=== PATIENT | male | born 1965 | race Caucasian/White ===

== ENCOUNTER → 2018-09-09 10:53 | Outpatient (CLI) | payer BC, SELFPAY | PROVIDERS: Family Provider Family Medicine; PCP Student in an Organized Health Care Education/Training Program; Visit Provider Physician Assistant | DX: L03.011 Cellulitis of right finger (principal); R52 Pain, unspecified | CPT/HCPCS: 87070; 87205 ==

== ENCOUNTER → 2019-04-18 08:18 | Outpatient (CLI) | payer BC, SELFPAY ==
--- NOTE | 2019-04-18 09:24 | P.PCN_ITS ---
Cardiac Stress Test Report Referral & Results Date Patient Seen: 04/18/19 Requesting provider: Johnathon Reyes Indication: Abnormal ECG Rest ECG: First-degree AV block and T-wave inversions laterally as well as in leads III aVf Procedure Note: Today following both written and verbal informed consent the patient was exercised according to a standard David protocol patient went for a total of 11 minutes 28 seconds achieving a maximum heart rate of 192 maximum systolic blood pressure of 152. This is approximately 12.8 METS. Exercise was terminated at this point because of targets were met. With exercise patient developed approximately 2.[address] segment depression in leads V4 through V6 with perhaps a hint of depression in the infe rior leads as well. In recovery the slowly began to improve but had not yet reached baseline at 5+ minutes into recovery. Patient was asymptomatic throughout however. Normal heart rate and blood pressure response Functional aerobic impairment rates-20% on the active scale or 120% normal on that same scale Occasional to rare PVC identified Patient was also given Cardiolite through a previously started Hep-Lock IV by the diagnostic imaging staff approximately 1 minute prior to the cessation of exercise. Impression: Ischemic changes in lateral leads as above. This is also in the area were baseline ECG abnormalities are present. Excellent exercise capacity Please see perfusion imaging report as well regarding potential ischemia as patient was also given Cardiolite Please note: Actual ECG tracings can be found in the PACS system.
--- NOTE | 2019-04-19 17:20 | DI.NM.S_ITS ---
DATE OF SERVICE: 04/18/2019 PROCEDURE: Exercise perfusion study. INDICATION: Abnormal EKG, FAA clearance. RADIOPHARMACEUTICAL: 25.0 mCi technetium-99m Myoview IV was injected at stress, and 25.2 mCi technetium-99m Myoview IV was injected at rest. CARDIAC STRESS: Patient underwent exercise perfusion study under the supervision of an attending staff. He walked on David protocol for 12 minutes 5 seconds and achieved 117% of target heart rate. At second stage, his blood pressure was 142/80. Resting blood pressure information is missing. The peak blood pressure was 150/90. Baseline rhythm was sinus and T-wave inversion in lead V3 to V6 as well as lead L2 and AVF with some flattening of the segment. During exercise and recovery, patient had 1- to 2-mm horizontal/downsloping ST depression in lead V3 to V6 with inverted T-wave. Nonspecific ST segments seen in inferior leads. Baseline artifacts were seen as well. No significant ventricular tachycardia seen. No symptoms were reported. Functional aerobic impairment -20%. Patient achieved 12.8 METS of work load. RAW DATA: There is increased subdiaphragmatic activity. GATED STUDY: Resting LV ejection fraction 59% and stress LV ejection fraction 61%. Resting end-diastolic volume 190 mL. No significant wall motion abnormalities. No transient ischemic dilatation. TID ratio was 0.82, which is within normal limits. Lung/heart ratio was 0.3, which is within normal limits. MYOCARDIAL PERFUSION SCAN: Stress supine, resting supine, and stress prone images were compared to each other. Stress supine images revealed small-to- moderate-sized mildly decreased perfusion of inferolateral wall and inferior apex. During resting supine, in addition to inferolateral and apical defect, there was anterior wall and distal anteroseptal defect as well, of moderate- sized and [id number] in intensity. During prone, most of the perfusion defects got normalized; however, patient remained to have mildly decreased perfusion of inferior apex and distal inferolateral wall. No significant reversible ischemia on perfusion scan. CONCLUSION: There is a fixed small-sized inferoapical and distal inferolateral defect without any significant reversible ischemia. Majority of the perfusion defect as mentioned above and seen during stress supine and resting supine images got normalized in the prone images; however, patient had persistent inferoapical and distal inferolateral defect. Patient has normal wall motion in those segments, which goes against the diagnosis of previous transmural myocardial infarction. However, one cannot rule out possibility of small nontransmural myocardial infarction in those segments. Patient has baseline T- wave inversion in lead V3 to V6 and lead L2 and AVF. During peak exercise and recovery, patient had 1- to 2-mm horizontal downsloping ST depression in lead V4 to V6, which persisted more than 5 minutes in recovery. Overall, excellent exercise tolerance. Total exercise time was 12 minutes 6 seconds. Patient achieved 12.8 METS of workload. Functional aerobic impairment -20%. Hence, I will call this study an abnormal myocardial perfusion study, but overall low-risk myocardial perfusion study. Correlate clinically. Andrea Nunez - WEBBING [employer]ER/sarah/kv doc#: [id number]/job#: [id number] dd: 04/19/2019 16:49:00 dt: 04/19/2019 17:06:00 DICTATING MD/COPIES TO: Flavio Ceballos MD ; Unknown COPIES MNE: MEAGAN GARCIA
== END ==
PROVIDERS: PCP Student in an Organized Health Care Education/Training Program; Visit Provider Anesthesiology
DX: R94.31 Abnormal electrocardiogram [ECG] [EKG] (principal)
CPT/HCPCS: 78452; 93016; 93017; 93018; A9502

== ENCOUNTER → 2019-04-25 11:42 | Outpatient (CLI) | payer BC, SELFPAY ==
[2019-04-25 13:19] LABS: BUN Creatinine Ratio 15.8 (6-22); Blood Urea Nitrogen 19 mg/dL (9-20); Carbon Dioxide 27 mmol/L (22-32); Chloride 103 mmol/L (98-107); Estimated Glomerular Filt Rate > 60.0 mL/min (>60); Glucose 87 mg/dL (70-100); HEMOLYSIS < 15 (0-50); Potassium 5.1 mmol/L (3.4-5.1); Sodium 139 mmol/L (137-145); Uric Acid 8.4 mg/dL (3.5-8.5)
[2019-04-25 13:46] LABS: Prostate Specific Antigen Scrn 0.895 ng/mL (0.1-4.0)
== END ==
PROVIDERS: PCP Student in an Organized Health Care Education/Training Program; Visit Provider Student in an Organized Health Care Education/Training Program
DX: Z12.5 Encounter for screening for malignant neoplasm of prostate (principal); I10 Essential (primary) hypertension; Z87.39 Personal history of other diseases of the musculoskeletal system and connective tissue
CPT/HCPCS: 36415; 80048; 84550; G0103

== ENCOUNTER → 2019-07-31 10:41 | Outpatient (CLI) | payer BC, SELFPAY ==
--- NOTE | 2019-07-31 10:42 | DI.US.S_ITS ---
PROCEDURE: US ABDOMEN LIMITED INDICATIONS: EVALUATE CYSTIC MASS IN LEFT FLANK.ASPIRATION NOT REQUIRED TECHNIQUE: Real-time focused scanning was performed of the abdomen, with image documentation. COMPARISON: None. FINDINGS: Inferior and lateral to the tip of the scapula, there is heterogeneous echogenicity, without definite internal vascularity measuring approximately 5.2 x 1.7 x 5.7 cm. There is hyperechoic possible fat echogenicity in addition to grossly isoechoic appearance, and margins are indistinct. No drainable fluid collection or cystic lesion is seen. IMPRESSION: Hyperechoic-isoechoic mass involving the periscapular region as detailed above. Sonographic findings are technically nonspecific. Differential includes lipoma, liposarcoma versus rare entities such as elastofibroma although other benign and malignant entities in the differential. Recommend further evaluation with contrast-enhanced chest CT. Dictated by: Asa Dobbins M.D. on 07/31/2019 at 16:38 Approved by: Asa Dobbins M.D. on 07/31/2019 at 16:43
== END ==
PROVIDERS: PCP Student in an Organized Health Care Education/Training Program; Referring Provider Student in an Organized Health Care Education/Training Program; Visit Provider Student in an Organized Health Care Education/Training Program
DX: R19.09 Other intra-abdominal and pelvic swelling, mass and lump (principal); M79.89 Other specified soft tissue disorders
CPT/HCPCS: 76705

== ENCOUNTER → 2019-08-04 18:29 | Outpatient (CLI) | payer BC, SELFPAY ==
--- NOTE | 2019-08-04 18:33 | DI.RAD.S_ITS ---
PROCEDURE: XR KNEE LT 3V INDICATIONS: L tib-fib/patellar pain post impact, swelling to bursa TECHNIQUE: 3 views of the knee were acquired. COMPARISON: None. FINDINGS: Bones: No fractures or dislocations. No suspicious bony lesions. Minimal degenerative change. Question of intra-articular bodies. Soft tissues: Minimal joint effusion. No suspicious soft tissue calcifications. IMPRESSION: Minimal degenerative change. Question intra-articular bodies. No evidence acute bony abnormality of the left knee. If clinical suspicion and/or symptoms persist, further assessment with repeat plain films, or advanced imaging (e.g., CT, MRI, or bone scan) may be helpful for further assessment. Dictated by: Jaya Nazario M.D. on 08/04/2019 at 19:00 Approved by: Jaya Nazario M.D. on 08/04/2019 at 19:01
== END ==
PROVIDERS: PCP Student in an Organized Health Care Education/Training Program; Referring Provider Nurse Practitioner; Visit Provider Nurse Practitioner
DX: M25.562 Pain in left knee (principal)
CPT/HCPCS: 73562

== ENCOUNTER → 2019-10-03 11:15 | Outpatient (CLI) | payer BC, SELFPAY ==
--- NOTE | 2019-10-03 | DI.MRI.S_ITS ---
PROCEDURE: MR KNEE LT WO CON INDICATIONS: Unspecified internal derangement of left knee TECHNIQUE: Noncontrast sagittal PD fast spin echo and T2 fast spin echo with fat saturation, sagittal 3-D FLASH with fat saturation; coronal T1 spin echo and PD fast spin echo with fat saturation, and axial PD fast spin echo with fat saturation through the knee. COMPARISON: [facility], CR, XR KNEE LT 3V, 08/04/2019, 18:31. FINDINGS: Image quality: Diagnostic. Bones and joint: There is no acute fracture or dislocation. Need marrow edema is evident involving the posterior aspect of the lateral tibial plateau, and the periphery of the medial femoral condyle. There may also be vague marrow edema involving the head of the fibula. No suspicious osseous lesions are evident. There is a moderate-sized knee joint effusion. A trace amount of fluid extends into a very small Blanton's cyst. No definite loose intra-articular joint bodies are appreciated. Heterogeneity of the hyaline articular cartilage is identified within the patellofemoral compartment without a definite full-thickness cartilaginous defect evident. No defects of the cartilage are evident within the medial or lateral tibiofemoral compartments. Cruciate ligaments: The anterior and posterior cruciate ligaments are intact. However, there is diffuse thickening and increased signal involving both of these ligaments that is more prominent involving the anterior cruciate ligament. Menisci: There is low-grade partial-thickness tearing involving the posterior root of the medial meniscus. Obliquely oriented signal is identified at the junction of the body and posterior horn that extends towards the inferior articular surface without definite involvement of the articular surface. The lateral meniscus is intact and otherwise within normal limits. Medial structures: The medial collateral ligament is intact. However, there is peritendinous edema. Fluid is contained within its corresponding bursa. The semimembranosus tendon insertion is intact. The imaged portions of the pes anserinus tendons are unremarkable. No significant fluid is contained within the pes anserinus bursa. There is a medial patellar plica. Lateral structures: The popliteal tendon is mildly thickened and edematous. The lateral collateral ligament proper (fibular collateral ligament) and the proximal tibiofibular ligaments are intact. The distal aspect of the biceps femoris tendon and the iliotibial band are intact. Anterior structures: The quadriceps and patellar tendons are intact. However, there is increased signal involving the proximal aspect of the patellar tendon with corresponding thickening. There is moderate edema within the prepatellar soft tissues with corresponding fluid contained within the prepatellar bursa. There mild edema evident within the superolateral margin of the infrapatellar fat pad. IMPRESSION: 1. Bone contusions involving the posterior lateral tibial plateau, medial femoral condyle, and head of the fibula. No fractures. 2. Low-grade partial-thickness tear involving the posterior root of the medial meniscus with additional peripheral tearing. 3. Anterior and posterior cruciate ligament sprains. No full thickness tears. 4. Medial collateral ligament sprain. Rectum fluid is contained within its associated bursa. 5. Mild proximal popliteal tendinopathy. 6. Mild proximal patellar tendinopathy. Edema within the prepatellar soft tissues may represent bursitis. 7. Possible early patellofemoral chondromalacia. No full-thickness defects. 8. Knee joint effusion. 9. Medial patellar plica. Dictated by: Jan Ewing M.D. on 10/03/2019 at 11:15 Approved by: Jan Ewing M.D. on 10/03/2019 at 11:22
== END ==
PROVIDERS: PCP Student in an Organized Health Care Education/Training Program; Referring Provider Orthopaedic Surgery Adult Reconstructive Orthopaedic Surgery; Visit Provider Orthopaedic Surgery Adult Reconstructive Orthopaedic Surgery
DX: S80.02XA Contusion of left knee, initial encounter (principal); S83.222A Peripheral tear of medial meniscus, current injury, left knee, initial encounter; S83.512A Sprain of anterior cruciate ligament of left knee, initial encounter; S83.522A Sprain of posterior cruciate ligament of left knee, initial encounter; M25.462 Effusion, left knee; M67.52 Plica syndrome, left knee
CPT/HCPCS: 73721

== ENCOUNTER → 2019-10-27 18:50 | Outpatient (CLI) | payer BC, SELFPAY ==
--- NOTE | 2019-10-27 18:51 | DI.MRI.S_ITS ---
PROCEDURE: MR CHEST WO/W CON INDICATIONS: left mid back lower posterior chest mass: lipoma vs sarcoma TECHNIQUE: Noncontrast coronal T1 spin echo and STIR, sagittal T1 spin echo with fat saturation and STIR, axial T1 spin echo and T2 fast spin echo with fat saturation. After the administration of contrast, axial/sagittal/coronal T1 spin echo with fat saturation through the left chest wall. COMPARISON: None. FINDINGS: Image quality: Excellent. Bones: The visualized bone marrow demonstrates normal signal on all sequences. No abnormal intraosseous enhancement. No bony erosions. Soft tissues: There is a well-circumscribed intramuscular mass within the left latissimus dorsi measuring 9.8 x 4.4 x 4.9 cm. This demonstrates primarily internal fat signal with a few internal thin septations and crossing vessels. Following contrast administration, there is mild enhancement of the septations. No adjacent soft tissue edema or enhancement. The scanned muscles otherwise demonstrate normal overall bulk and internal signal. Subcutaneous tissues appear within normal limits. IMPRESSION: 1. Well-circumscribed intramuscular mass within the left latissimus dorsi demonstrating internal thin septations and crossing vessels. The findings likely represent a lipoma or atypical lipomatous tumor. However, a low grade liposarcoma cannot be excluded by imaging. 2. No evidence of adjacent extramuscular extension or bony invasion. Dictated by: Agustin Morocho M.D. on 10/30/2019 at 10:52 Approved by: Agustin Morocho M.D. on 10/30/2019 at 11:02
== END ==
PROVIDERS: PCP Student in an Organized Health Care Education/Training Program; Referring Provider Specialist; Visit Provider Specialist
DX: R22.2 Localized swelling, mass and lump, trunk (principal)
CPT/HCPCS: 71552; A9579

== ENCOUNTER → 2019-11-02 06:59 | Outpatient (CLI) | payer BC, SELFPAY ==
[2019-11-02 08:54] LABS: Cholesterol 192 mg/dL (140-199); HDL Cholesterol 65 mg/dL (40-60); LDL Cholesterol Calculated 114 mg/dL (<100); Triglycerides 64 mg/dL (35-150)
== END ==
PROVIDERS: PCP Student in an Organized Health Care Education/Training Program; Referring Provider Student in an Organized Health Care Education/Training Program; Visit Provider Student in an Organized Health Care Education/Training Program
DX: E78.00 Pure hypercholesterolemia, unspecified (principal)
CPT/HCPCS: 36415; 80061

== ENCOUNTER → 2020-03-08 14:28 | Outpatient (CLI) | payer BC, SELFPAY ==
[2020-03-09 21:36] LABS: COVID19 Sendout Not Detected (Not Detect)
== END ==
PROVIDERS: PCP Student in an Organized Health Care Education/Training Program; Visit Provider Physician Assistant
DX: Z01.812 Encounter for preprocedural laboratory examination (principal)
CPT/HCPCS: 87635

== ENCOUNTER 2020-03-11 06:34 | Day surgery (SDC) | payer BC, SELFPAY ==
[2020-03-06 12:31] VITALS: BMI 27.3
[2020-03-11] VITALS (7 sets, daily range): BP systolic 122–142; BP diastolic 70–91; PULSE 60–86; RESP 16–21; TEMP 36.1–36.9; O2SAT 98–100; BMI 27.3
--- NOTE | 2020-03-11 | PATH_ITS ---
[facility] Accession Number: [id number] . 01 Material submitted: . back - INTRAMUSCULAR LIPOMA BACK . 01 Clinical history: . SDC . 01 Diagnosis: Back, Excision: Mature adipose tissue with minimal skeletal muscle, consistent with intramuscular lipoma. MRV 03/13/2020 0925 Local . 01 Electronically signed: . Luke Stafford MD, Dermatopathologist NPI- [id number] . 01 Gross description: . Received in formalin, labeled intramuscular lipoma back, and consists of three nevarez-yellow fragments of adipose tissue measuring 9.5 x 9.5 x 3.2 cm in aggregate. The tissue fragments are inked blue and sectioned to reveal nevarez-yellow lobulated and glistening cut surfaces. Child Care Director sections are submitted in cassettes A1-A9. ([id number]) /MRV 03/12/2020 1040 Local . 01 Pathologist provided ICD-10: D17.9 . 01 CPT . 518113 Performed at: [address] [facility] [address], [place], [place] [id number] MD Agustin Colon MD Phone: [phone]
[2020-03-11] MEDS: LACTATED RINGERS 1,000 ML 42 ML IV ×2 (07:25→08:53)
--- NOTE | 2020-03-11 07:59 | PM.HP.1 ---
History of Present Illness History of Present Illness Date Patient Seen: 03/11/20 Time Patient Seen: 08:00 Chief complaint: [facility] [place]arrative: It is gentleman here for removal of a large left back mass. He thinks it may have grown since I last saw him in September. Patient History Medical History History of cardiac murmur (Acute) Wound of left lower extremity (Inactive 01/20/15) Surgical History History of stress test (Resolved ~03/2019) Family & Social History Family History Father Cancer Mother History of heart disease Brother Cancer Social History: household members spouse Tobacco & Substance use: Smoking Status Never smoker alcohol intake current alcohol intake frequency 0-2 drinks per day Substance Use Type does not use Meds Home Medications and Allergies Home Medications Medication Instructions Recorded Confirmed Type lisinopril 20 mg tablet 20 mg PO DAILY #90 tab 04/25/19 03/11/20 Rx Allergies Allergy/AdvReac Type Severity Reaction Status Date / Time No Known Drug Allergies Allergy Verified 03/11/20 07:01 Review of Systems Review of Systems Narrative: Heart murmur ROS: Yes All systems reviewed with the patient and are negative except as otherwise documented Exam Vital Signs (past 8 hours): - 03/11/20 07:07 Temperature 97.9 F Pulse Rate 62 Respiratory Rate 16 Blood Pressure 122/87 Pulse Oximetry 99 Oxygen Delivery Method Room Air Narrative Exam Narrative: Pleasant cooperative patient no apparent distress. Lungs are clear to auscultation. No rales or rhonchi. Heart regular rate and rhythm no gallop. Loud to to 3/6 systolic murmur heard best at the right sternal border with radiation into the neck. Abdomen is soft nontender without mass. No obvious hernias. Patient is alert and oriented x3. Left flank mass measuring about 11 x 11 cm. Clinically In the subcu fat. Assessment & Plan Assessment & Plan narrative: Patient with a large mass left lower back. Causes occasional discomfort to the location. I have discussed the procedure of removal with him. Risks of bleeding infection recurrence discussed he appears to understand wishes to proceed
--- NOTE | 2020-03-11 08:02 | PM.PREOP ---
Pre-operative Note COVID-19 COVID-19 status: Negative Result date/Date tested (Pos, Neg/Pending): 03/08/20 Interval Note History & Physical reviewed/Exam performed by Physician: Yes Changes to H&P: No
[2020-03-11] MEDS: CEFAZOLIN 2 GM/100 ML FROZ.PIGGY IV (08:03)
--- NOTE | 2020-03-11 08:30 | SUR.OPER ---
Lateral on padded OR bed, head on pillow, gel axillary roll in place, bottom leg bent with gel pad under knee to foot, upper leg straight and supported with pillows. Upper arm supported by pillows and secured over bottom arm to padded arm board. Safety belt at hip, tape over blanket lower legs.
[2020-03-11] MEDS: BUPIVACAINE 0.5% (PF) VIAL 30 ML INJ (08:39)
--- NOTE | 2020-03-11 09:32 | P.OP_ITS ---
Operative Date/Time/Diagnoses Date of procedure: 03/11/20 Time of procedure: 09:32 Pre-op diagnosis: Mass left flank probable lipoma measures 11 x 11 cm. Post-op diagnosis: same (Subcutaneous and a separate intramuscular lipoma.) Procedure & Clinicians Procedure: Excision Same procedure as scheduled: Yes Indications: Symptomatic mass Surgeon: Aravind Bear Click Yes if Unassisted: Yes Anesthesia Type: General Operative Notes Findings: Large intramuscular fatty mass consistent with a lipoma. Additional subcutaneous fatty mass also consistent with lipoma. It was removed in 2 pieces. Closure Type: primary Specimen(s): other (Masses) Prosthetic devices, grafts, tissues, transplants, or devices: None Estimated Blood Loss (mL): 15 Blood products transfused: none Procedure in detail: The patient was placed in right lateral decubitus position after undergoing general LMA anesthesia. Bony prominence was were padded an axillary roll was placed. He was prepped and draped in the usual fashion. Lo kiet anesthetic was infiltrated around the lesion and where the incision was to be made. Incision was made and carried down through the subcu fat to what appeared to be of the fatty mass. I began dissecting around it but realize that there also seemed to be a separate mass deeper in the muscle. I divided through the subcutaneous fatty mass and muscle fascia and splitting the muscle fibers identified a large fatty mass within the muscle itself. This was dissected from the surrounding muscle using blunt and cautery dissection. It was ultimately released and removed. Hemostasis was achieved. I dissected out the subcutaneous masses off of the muscle fascia and removed them. Cautery was used to accomplish this. The muscle fascia was reapproximated with [id number] 3 0 Vicryl the subcu was closed with interrupted [id number] 3-0 Vicryl. The skin was closed running 4 0 Vicryl subcuticular stitch and Steri-Strips. Dressing was applied and the patient was awakened extubated and taken to recovery area in good condition Complications: none Post-operative Condition: stable Disposition: PACU
--- NOTE | 2020-03-11 10:21 | SUR.PHASEII ---
Pt voiced a readiness to go, did not want to come in for d/c instruction, called, informed of d/c information would be in brightly colored envelop.Pt left in stable condition.
== END 2020-03-11 10:18 | disposition home or self-care (01) ==
PROVIDERS: PCP Student in an Organized Health Care Education/Training Program; Referring Provider Specialist; Visit Provider Specialist
PROC: (CPT 21933; principal; 2020-03-11 07:45)
DX: D17.1 Benign lipomatous neoplasm of skin and subcutaneous tissue of trunk (principal); I10 Essential (primary) hypertension
CPT/HCPCS: 21933; J0690; J1100; J1885; J2250; J2405; J2704; J3010

== ENCOUNTER → 2021-02-10 09:52 | Outpatient (CLI) | payer BC, SELFPAY ==
[2021-02-10 12:51] LABS: BUN Creatinine Ratio 19.5 (6-22); Blood Urea Nitrogen 22 mg/dL (9-20); Calcium 9.9 mg/dL (8.4-10.2); Carbon Dioxide 27 mmol/L (22-32); Chloride 105 mmol/L (98-107); Estimated Glomerular Filt Rate > 60.0 mL/min (>60); Glucose 86 mg/dL (70-100); HEMOLYSIS < 15 (0-50); Potassium 4.8 mmol/L (3.4-5.1); Sodium 139 mmol/L (137-145)
[2021-02-10 13:09] LABS: Prostate Specific Antigen Scrn 0.955 ng/mL (0.1-4.0)
== END ==
PROVIDERS: PCP Student in an Organized Health Care Education/Training Program; Referring Provider Student in an Organized Health Care Education/Training Program; Visit Provider Student in an Organized Health Care Education/Training Program
DX: I10 Essential (primary) hypertension (principal); Z12.5 Encounter for screening for malignant neoplasm of prostate
CPT/HCPCS: 36415; 80048; G0103

== ENCOUNTER → 2021-02-13 11:40 | Outpatient (CLI) | payer BC, SELFPAY ==
[2021-02-14 21:14] LABS: Fecal Immunochemical Test Negative (Negative)
== END ==
PROVIDERS: PCP Student in an Organized Health Care Education/Training Program; Referring Provider Student in an Organized Health Care Education/Training Program; Visit Provider Student in an Organized Health Care Education/Training Program
DX: Z12.11 Encounter for screening for malignant neoplasm of colon (principal)
CPT/HCPCS: 82274

== ENCOUNTER → 2021-10-03 09:39 | Outpatient (CLI) | payer BC, SELFPAY | PROVIDERS: PCP Student in an Organized Health Care Education/Training Program; Visit Provider Physician Assistant | DX: J02.9 Acute pharyngitis, unspecified (principal) | CPT/HCPCS: 87070 ==

== ENCOUNTER → 2021-10-05 10:23 | Outpatient (CLI) | payer BC, SELFPAY ==
[2021-10-05 11:07] LABS: COVID19 -Nasal RAPID Negative (Negative)
== END ==
PROVIDERS: PCP Student in an Organized Health Care Education/Training Program; Visit Provider Nurse Practitioner Critical Care Medicine
DX: Z20.822 Contact with and (suspected) exposure to COVID-19 (principal)
CPT/HCPCS: 87635

== ENCOUNTER → 2021-12-23 16:57 | Outpatient (CLI) | payer BC, SELFPAY ==
[2021-12-23 18:11] LABS: Add Manual Diff / Slide Review NO; Basophils Absolute Auto 100 /uL (0-100); Eosinophils Absolute Auto 200 /uL (0-450); Eosinophils Percent Auto 2.8 % (2-4); Hemoglobin 13.6 g/dL (13.5-17.5); Lymphocytes Absolute Auto 1100 /uL (1100-4500); Lymphocytes Percent Auto 19.8 % (25-40); Mean Corpuscular HGB Conc 33.9 % (30-36); Mean Corpuscular Hemoglobin 31.8 PG (26-34); Mean Corpuscular Volume 93.6 fL (80-100); Monocytes Absolute Auto 500 /uL (0-900); Monocytes Percent Auto 9.5 % (3-14); Neutrophils Absolute Auto 3600 /uL (1500-7000); Neutrophils Percent Auto 66.9 % (50-75); Platelet Count 268 X10^3/uL (150-400); Red Blood Cell Count 4.27 X10^6/uL (4.5-5.9); Red Cell Distribution Width 13.8 % (11.6-14.8); White Blood Cell Count 5.5 X10^3/uL (4.5-11.0)
[2021-12-23 18:28] LABS: Alanine Aminotransferase 19 IU/L (<50); Albumin 4.8 g/dL (3.5-5.0); Albumin Globulin Ratio 1.5 (1.0-2.8); Alkaline Phosphatase 51 U/L (38-126); Aspartate Aminotransferase 35 IU/L (17-59); BUN Creatinine Ratio 19.8 (6-22); Bilirubin Total 0.4 mg/dL (0.2-1.3); Blood Urea Nitrogen 23 mg/dL (9-20); C-Reactive Protein Quant < 0.5 mg/dL (<1.0); Carbon Dioxide 25 mmol/L (22-32); Chloride 105 mmol/L (98-107); Estimated Glomerular Filt Rate > 60 mL/min (>60); Globulin 3.1 g/dL (1.7-4.1); Glucose 88 mg/dL (70-100); HEMOLYSIS 24 (0-50); Potassium 4.6 mmol/L (3.4-5.1); Sodium 138 mmol/L (137-145); Total Protein 7.9 g/dL (6.3-8.2)
[2021-12-23 18:45] LABS: Erythrocyte Sedimentation Rate 8 MM/HR (0-15)
[2021-12-23 18:56] LABS: TSH w/ Reflex to FT4 1.66 uIU/mL (0.47-4.68)
[2021-12-23 19:32] LABS: Appearance Urine UA CLEAR; Bilirubin Urine UA NEGATIVE (NEGATIVE); Color Urine UA YELLOW; Glucose Urine UA NEGATIVE (Negative); Ketones Urine UA NEGATIVE (NEGATIVE); Leukocyte Esterase Urine UA NEGATIVE (NEGATIVE); Nitrite Urine UA NEGATIVE (Negative); Occult Blood Urine UA NEGATIVE (Negative); Protein Urine UA NEGATIVE (Negative); Specific Gravity Urine UA 1.015 (1.000-1.035); Urobilinogen Urine UA 0.2 E.U./dL (0.2)
[2021-12-23 19:47] LABS: Bacteria Urine None Seen; RBC Urine None Seen (0-5/HPF); Squamous Epithelial Cell Urine 0-1 /HPF (0-5/HPF); WBC Urine 0-1/HPF (0-5/HPF)
[2021-12-23 19:48] LABS: Culture Indicated Urine Cult Not Indicated
[2021-12-25 14:52] LABS: ANA Screen, IFA Negative (.)
== END ==
PROVIDERS: PCP Student in an Organized Health Care Education/Training Program; Referring Provider Student in an Organized Health Care Education/Training Program; Visit Provider Student in an Organized Health Care Education/Training Program
DX: I73.00 Raynaud's syndrome without gangrene (principal)
CPT/HCPCS: 36415; 80053; 81001; 84443; 85025; 85651; 86038; 86140

== ENCOUNTER → 2022-02-10 13:51 | Outpatient (CLI) | payer BC, SELFPAY ==
--- NOTE | 2022-02-10 13:57 | DIET.CONS ---
Dietary Consultation Note Assessment: 56y M referred to nutrition for mixed hyperlipidemia c family hx heart disease attending RD visit with son Uriel. Pt has 1st degree AV block, bicuspid valve, heart murmur, high family hx heart disease and diabetes. 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 He has barriers with eating in that work foods need to be portable and he has busy times where he cannot eat, even if he is not hungry. Usual Day: wakes 7:30am feeling mostly rested Nespresso pod 2-3 cups drip coffee, black back from gym 10:30a. Breakfast (11am): if going to crossfit handful cereal if not, bigger bowl cereal (Morning Venus) c almond milk or breakfast taco c [address] street tacos 1 egg 1.75oz cheese and 3/4oz chorizo Lunch (2pm): sandwich-breadfarm monster wheat- turkey, cheese, lettuce, cohen, mustard or chipotle c handful Tasneem chips Dinner (530-7pm): taco truck, brown Lantern, Christiano, village pizza or mirabella 2-3x, likes veggie style things- stir pelaez or fajitas Physical Activity: crossfit 3x/w at 8:30am. Pt working through fueling properly before a workout so he has good sustained energy and is not too hungry when finished, but also, not working out on full stomach. Using [employer] edith, just starting to input information. Ht: 5'9 Wt: 174# BMI: 25.4 No lipid levels on file in EHR to review or benchmark, pt unsure how to access labs if from outside our hospital system. Nutrition Diagnosis: nutrition related knowledge deficit r/t diet to support cardiovascular health aeb pt logging breakfast >1,000mg sodium, pt eating cheese and chorizo in same meal, reliance on take out food items, pt desires improved health and education on nutrition. Interventions: 1. Educated pt on heart healthy diet principles including limiting sodium to 2g daily- no more than 600mg per meal; limiting saturated fat to 10% of total kcals, limiting added sugar to 25g/d. Practiced label reading to identify these nutrients and their amounts. 2. To support pts goal of weight maintenance and weight loss, set pts kcal to 1900/d and fiber to 25g/d. Discussed sources of dietary fiber and benefit to lipid levels. EER: 2,000mg sodium daily, 45g CHO/meal, 1900kcals/d, 25g fiber daily, <20g saturated fat daily, 25g added sugar/d Monitoring/Evaluations: f/u in 5w to continue education and health monitoring Electronically Signed by: Georgie Marin 02/10/22 13:57 Clinical Dietitian [address] [address]
[2022-02-10 15:07] VITALS: BMI 25.7
== END ==
PROVIDERS: PCP Student in an Organized Health Care Education/Training Program; Referring Provider Student in an Organized Health Care Education/Training Program; Visit Provider Student in an Organized Health Care Education/Training Program
DX: E78.2 Mixed hyperlipidemia (principal); Z82.49 Family history of ischemic heart disease and other diseases of the circulatory system; Z83.3 Family history of diabetes mellitus; R01.1 Cardiac murmur, unspecified; I44.0 Atrioventricular block, first degree; Z68.25 Body mass index [BMI] 25.0-25.9, adult; Z71.3 Dietary counseling and surveillance
CPT/HCPCS: 97802

== ENCOUNTER → 2022-03-17 13:01 | Outpatient (CLI) | payer BC, SELFPAY ==
--- NOTE | 2022-03-17 13:05 | DIET.OUTPTC ---
Dietary Outpatient Consultation Note Consultation Date: 03/17/2022 57y M attending RD f/u for help with diet to support cardiovascular health. Pt tracked intake for 1d then couldn't find the time to continue. Pt desires to track intake to better identify good choices and good food combinations. Pt realized his chorizo is extremely high in saturated fat and sodium so not a good choice for him. Pt is being more mindful regarding fiber intake. Pt starting bringing naseem friedman fresh veggies to work. Pt inquiring about super greens supplement he has heard about in podcasts. Interventions: 1. Discussed food tracking and strategies for success including starting with tracking only breakfast meals until all options are available in system library, then moving on to lunches, finally dinners. Discussed tracking for a few weeks or up to a few months at which point pt should feel confident with food choices. 2. Introduced pt to Cardiometabolic Food Plan. Reviewed reccs and problem solved pts current intake compared to plan standard. 3, Reviewed supplement in question with nohemi conversation on pros and cons of product, lack of FDA oversight in supplements, and social media paid advertisements and sponsors. Pt could substitute one serving of drink for one serving of vegetable daily. Recc pt try if he stills desires to but understand a supplement is not a magic cure all for health and does not substitute a healthy diet. Pt will use information learned at first session and today to refine his current habits for cardiometabolic health. Electronically Signed by: Georgie Marin 03/17/22 13:05 Clinical Dietitian [address] [id number]
== END ==
PROVIDERS: PCP Student in an Organized Health Care Education/Training Program; Referring Provider Student in an Organized Health Care Education/Training Program; Visit Provider Student in an Organized Health Care Education/Training Program
DX: Z71.3 Dietary counseling and surveillance (principal)
CPT/HCPCS: 97803

== ENCOUNTER → 2022-03-19 13:55 | Outpatient (CLI) | payer BC, SELFPAY ==
--- NOTE | 2022-03-19 13:56 | DI.ECHO.S_ITS ---
[facility]---------[facility] +---------+ : : [address] : : : : [address] : : : : [phone] : : : : Phone: [phone]---------+ Echocardiogram Report + + :Name: MADELEINE JONES Study Date: 03/19/2022 Height: 69 in : :[facility] ReadingLocation: Weight: 174 lb : : Gender: Male BSA: 1.9 m2 : :: 1965 Age: 57 yrs BP: 130/84 mmHg: :Reason For Study: Aortic, Biscupid Valve : :Ordering Physician: JOSEP, : :GENO Performed By: Luke Jenkins : :Referring: GENO CAR : + + Interpretation Summary The ejection fraction is estimated to be 65-70% The right ventricle is normal in size and function. Pulmonary artery pressures cannot be estimated because of the lack of a measurable TR jet velocity. The aortic valve is heavily calcified. The aortic valve is bicuspid. The calculated aortic valve area is 1.4 cm2. The aortic valve mean gradient is 43 mmHg. The peak aortic velocity is 4.2 m/sec. There is moderate to severe aortic stenosis, closer to severe. Procedure: A two-dimensional transthoracic echocardiogram with color flow and Doppler was performed. The study quality was technically adequate. Comparison is made with the echocardiogram of 03/02/2017. Left Ventricle: The left ventricle is normal in size and wall thickness. The ejection fraction is estimated to be 65-70%. There are no focal wall motion abnormalities. Diastolic parameters suggest probable normal left ventricular diastolic function and normal filling pressures. Right Ventricle: The right ventricle is normal in size and function. Atria: Both atria are normal in size. The interatrial septum grossly appears intact with no obvious evidence for an atrial septal defect. Mitral Valve: There is mild mitral annular calcification. There is trace mitral regurgitation. Aortic Valve: The aortic valve is bicuspid. The aortic valve is heavily calcified. The calculated aortic valve area is 1.4 cm2. The aortic valve mean gradient is 43 mmHg. There is moderate to severe aortic stenosis. The peak aortic velocity is 4.2 m/sec. No aortic regurgitation is present. Tricuspid Valve: The tricuspid valve is normal in structure and function. No tricuspid regurgitation. Pulmonary artery pressures cannot be estimated because of the lack of a measurable TR jet velocity. Pulmonic Valve: The pulmonic valve is normal in structure and function. There is no pulmonic valvular regurgitation. Great Vessels: The aortic root is moderately dilated. The ascending aorta is moderately enlarged. The IVC is dilated (diameter is greater than 2.1 cm) yet it collapses greater than 50% with a sniff. This suggests a right atrial pressure of 8 mm Hg. Pericardium/ Pleura There is no pericardial effusion. There is no pleural effusion. MMode/2D Measurements & Calculations LVIDd: 5.5 cm LVOT diam: 2.7 cm LVIDs: 3.9 cm Ao root diam: 4.3 cm FS: 29.1 % asc Aorta Diam: 4.5 cm IVSd: 1.1 cm LVPWd: 1.0 cm LV mast. diameter/BSA (cm/m^2): 2.8 LV sys. diameter/BSA (cm/m^2): 2.0 LA dimension: 3.5 cm RA long axis: 5.3 cm LA A2 area: 20.2 cm2 IVC diam: 2.3 cm LA A4 area: 20.3 cm2 LA length (vol): 5.5 cm LA vol: 63.4 ml LA vol index: 32.6 ml/m2 TAPSE_phl: 3.6 cm Doppler Measurements & Calculations Ao V2 max: 422.5 cm/sec LVOT Max Roberto: 84.9 cm/sec Ao V2 mean: 310.0 cm/sec LV V1 max P.9 mmHg Ao max P.0 mmHg LV V1 VTI: 21.0 cm Ao mean P.0 mmHg ABISAI(I,D): 1.4 cm2 Ao V2 VTI: 90.7 cm ABISAI(V,D): 1.2 cm2 sev ratio: 0.23 ABISAI indexed to BSA (cm^2/m^2): 0.70 MV E max roberto: 70.7 cm/sec SV(LVOT): 123.5 ml MV A max roberto: 93.0 cm/sec MV E/A: 0.76 Med Peak E' Roberto: 6.2 cm/sec E/E' med: 11.4 Lat Peak E' Roberto: 7.0 cm/sec E/E' lat: 10.2 E/e' average: 10.8 MV dec time: 0.25 sec AV VR_phl: 0.20 MV P1/2t-pr_phl: 72.0 msec ABISAI(VTI)/BSA_phl: 0.73 Reading Physician:CHARLES
== END ==
PROVIDERS: PCP Student in an Organized Health Care Education/Training Program; Referring Provider Student in an Organized Health Care Education/Training Program; Visit Provider Student in an Organized Health Care Education/Training Program
DX: Q23.1 Congenital insufficiency of aortic valve (principal); I34.81 Nonrheumatic mitral (valve) annulus calcification
CPT/HCPCS: 93306

== ENCOUNTER 2022-09-02 12:16 | Emergency (ER) | payer BC, SELFPAY ==
[2022-09-02] VITALS (28 sets, daily range): BP systolic 98–181; BP diastolic 69–96; PULSE 65–144; RESP 10–25; TEMP 36.4; O2SAT 96–100; BMI 26.0
--- NOTE | 2022-09-02 12:35 | DI.RAD.S_ITS ---
PROCEDURE: XR CHEST 1V INDICATIONS: SOB, N/V TECHNIQUE: One view of the chest was acquired. COMPARISON: [facility], , CHEST 2 VIEW, 03/06/2008, 12:23. FINDINGS: Surgical changes and devices: Median sternotomy wires are seen. Lungs and pleura: Lungs are clear. No pleural effusions or pneumothorax. Mediastinum: Mediastinal contours appear normal. Heart size is normal. Bones and chest wall: No suspicious bony lesions. Overlying soft tissues appear unremarkable. IMPRESSION: No acute cardiopulmonary pathology. Dictated by: Jamie Spencer M.D. on 09/02/2022 at 13:50 Approved by: Jamie Spencer M.D. on 09/02/2022 at 13:50
--- NOTE | 2022-09-02 12:36 | ED_ITS ---
HPI - Arrhythmia/Palpitations General Chief Complaint: Arrhythmia/Palpitations Stated Complaint: post heart surg/pulse over 140/vomiting Time Seen by Provider: 09/02/22 12:25 History of Present Illness HPI narrative: 57M nonsmoker with history of GERD, hypertension, first-degree AV block, severe aortic stenosis, ascending aortic aneurysm with recent aortic valve replacement with ascending aorta repair with Vascutek graft presents today with a chief complaint of rapid heart rate, dizziness and lightheadedness along with multiple episodes of nausea and vomiting. He denies any chest pain or significant shortness of breath. He was admitted on August 19 and discharged on August 24. He has been doing quite well in the aftermath and has been gradually increasing his daily activity and even has been doing mild, low intensity hikes without difficulty. He has been taking all medications as directed. He denies any fever or chills. Related Data Previous Rx's Medication Instructions Recorded lisinopril 20 mg tablet 20 mg PO DAILY #90 tabs 07/27/22 ondansetron 4 mg disintegrating 4 mg PO TID-QID PRN nausea and 09/02/22 tablet vomiting #10 tabs Allergies Allergy/AdvReac Type Severity Reaction Status Date / Time No Known Drug Allergies Allergy Verified 09/02/22 12:40 Review of Systems Review of Systems Narrative: GENERAL: Denies chills, fatigue, malaise, fever, sweats. HEENT: Denies sinus pain, ear pain, sore throat, difficulty swallowing, dizziness. RESPIRATORY: Denies dyspnea, cough, wheezing, hemoptysis, sputum. CARDIOVASCULAR: See HPI GASTROINTESTINAL: See HPI : Denies dysuria, frequency, incontinence, hematuria, urinary retention. MUSCULOSKELETAL: denies weakness, joint pain, or bony pain SKIN: Denies rash, skin lesions, or other NEUROLOGIC: Denies weakness, headache, numbness, change in speech, confusion, seizures, incoordination. PSYCHIATRIC: No concerning psychosocial issues. 12 point review of systems is negative except for those stated above Patient History Medical History History of cardiac murmur Wound of left lower extremity (01/20/15) Surgical History History of stress test (~03/2019) Status post excision of lipoma Family History Father Cancer Mother History of heart disease Brother Cancer Social History household members: spouse Smoking Status: Never smoker alcohol intake: current Smoking Status: Never smoker alcohol intake frequency: 0-2 drinks per day Substance Use Type: does not use Exam Narrative Exam Narrative: GENERAL: [57] year old patient appears stated age. Well-developed patient, in mild distress. Holding an emesis bag HEAD: Atraumatic. Normocephalic. EYES: Pupils equal round and reactive. Extraocular motions intact. No scleral icterus. No injection or drainage. ENT: Nose without bleeding, purulent drainage. Throat without erythema, tonsillar hypertrophy or exudate. Airway patent. NECK: Trachea midline. Non tender CARDIOVASCULAR: Tachycardic but regular rhythm without murmurs, gallops, or rubs. RESPIRATORY: Clear to auscultation. Breath sounds equal bilaterally. No wheezes, rales, or rhonchi. GASTROINTESTINAL: Abdomen soft, non-tender, nondistended. EXTREMITIES: No edema or joint tenderness. BACK: Nontender without deformity or crepitance. No flank tenderness. NEURO: AOx3. SKIN: No rash or erythema of visible areas Initial Vital Signs Initial Vital Signs: Vital Signs Pulse Rate 143 H 09/02/22 12:31 Respiratory Rate 22 09/02/22 12:31 Blood Pressure 133/87 09/02/22 12:31 Pulse Oximetry 100 09/02/22 12:31 Procedures Cardioversion Consent Signed: Yes Indication: Symptomatic atrial flutter Stability: Stable Number of attempts (shocks): 1 Joules used: 50 Cardiac rhythm post-cardioversion: Normal sinus Procedural Sedation Consent signed: Yes Time out performed: Yes Indication: cardioversion ASA Class: II Mallampati Airway Classification: Class I Preparation: poleyard supervisor applied, pulse oximeter, capnometry used, supplemental O2 applied, suction/airway equipment at bedside and IV secured IV Propofol dose (mg): 50 Intraservice time/total sedation time (min): 10 ED Sedation Level: Moderate (Concious) Patient Tolerated Procedure: Well Complications: none Course Orders Ordered: Discontinued Medications Metoprolol Tartrate (Metoprolol Tartrate 5 Mg/5 Ml Inj) 5 mg IV NOW ONE Stop: 09/02/22 12:46 Last Admin: 09/02/22 12:52 Dose: 5 mg Documented By: LYNDESY Ondansetron HCl (Ondansetron 4 Mg/2 Ml Inj) 4 mg IV NOW ONE Stop: 09/02/22 12:44 Last Admin: 09/02/22 12:46 Dose: 4 mg Documented By: LYNDSYE Pantoprazole Sodium (Pantoprazole 40 Mg Vial) 40 mg IV NOW ONE Stop: 09/02/22 14:15 Last Admin: 09/02/22 14:19 Dose: 40 mg Documented By: KATIE Propofol (Propofol 200 Mg/20 Ml Vial) 80 mg 1 mg/kg (80 mg) IV NOW ONE Stop: 09/02/22 13:01 Last Admin: 09/02/22 13:19 Dose: 50 mg Documented By: LYNDSEY Consultations Consultation #1: call to Cardio. Face sheet faxed. Images pushed. Time: 12:42 Consultation #2: Discussed with on-call cardiothoracic surgeon who was familiar with patient's c ase. We discussed patient's history and physical exam as well as presenting symptoms and after this discussion they are in agreement with proceeding with cardioversion. There is no recommendation for any change in follow-up, nor change in medication doses Vital Signs Vital signs: Vital Signs - 8 hr 09/02/22 12:36 09/02/22 12:31 09/02/22 12:31 Temperature 97.5 F L Pulse Rate 142 H 143 H Respiratory Rate 22 22 Blood Pressure 142/95 H 133/87 Pulse Oximetry 100 100 Oxygen Delivery Method Room Air MDM - Arrhythmia/Palpitations Lab Data 09/02/22 12:35 09/02/22 12:35 Labs: Lab Results 09/02/22 09/02/22 09/02/22 Range/Units 12:35 12:35 12:35 WBC 13.6 H (4.5-11.0) X10^3/uL RBC 3.55 L (4.5-5.9) X10^6/uL Hgb 11.1 L (13.5-17.5) g/dL Hct 32.3 L (41-53) % MCV 91.0 (80-100) fL MCH 31.3 (26-34) PG MCHC 34.4 (30-36) % RDW 13.1 (11.6-14.8) % Plt Count 644 H (150-400) X10^3/uL Neut % (Auto) 85.4 H (50-75) % Lymph % (Auto) 6.9 L (25-40) % [place] % (Auto) 6.6 (3-14) % Eos % (Auto) 0.5 L (2-4) % Baso % (Auto) 0.6 (0-2) % Neut # (Auto) 53307 H (3614-8824) /uL Lymph # (Auto) 900 L (1631-1547) /uL [place] # (Auto) 900 (0-900) /uL Eos # (Auto) 100 (0-450) /uL Baso # (Auto) 100 (0-100) /uL PT 15.7 H (10.1-12.7) SECONDS INR 1.4 H (0.9-1.3) Sodium 131 L (137-145) mmol/L Potassium 4.6 (3.4-5.1) mmol/L Chloride 98 (98-107) mmol/L Carbon Dioxide 24 (22-32) mmol/L BUN 22 H (9-20) mg/dL Creatinine 1.10 (0.66-1.25) mg/dL Estimated GFR > 60 (>60) mL/min BUN/Creatinine Ratio 20.0 (6-22) Glucose 146 H (70-100) mg/dL Calcium 9.5 (8.4-10.2) mg/dL Total Bilirubin 0.5 (0.2-1.3) mg/dL AST 33 (17-59) IU/L ALT 47 (<50) IU/L Alkaline Phosphatase 83 (38-126) U/L Total Creatine Kinase (55-170) U/L CK-MB (CK-2) CK-MB (CK-2) Rel Index Troponin I (0.01-0.034) ng/mL NT-Pro-B Natriuret Pep (<125) pg/mL Total Protein 7.9 (6.3-8.2) g/dL Albumin 4.1 (3.5-5.0) g/dL Globulin 3.8 (1.7-4.1) g/dL Albumin/Globulin Ratio 1.1 (1.0-2.8) SARS-CoV-2 (PCR) (Negative) 09/02/22 09/02/22 Range/Units 12:35 12:35 WBC (4.5-11.0) X10^3/uL RBC (4.5-5.9) X10^6/uL Hgb (13.5-17.5) g/dL Hct (41-53) % MCV (80-100) fL MCH (26-34) PG MCHC (30-36) % RDW (11.6-14.8) % Plt Count (150-400) X10^3/uL Neut % (Auto) (50-75) % Lymph % (Auto) (25-40) % [place] % (Auto) (3-14) % Eos % (Auto) (2-4) % Baso % (Auto) (0-2) % Neut # (Auto) (5446-2518) /uL Lymph # (Auto) (1430-6881) /uL [place] # (Auto) (0-900) /uL Eos # (Auto) (0-450) /uL Baso # (Auto) (0-100) /uL PT (10.1-12.7) SECONDS INR (0.9-1.3) Sodium (137-145) mmol/L Potassium (3.4-5.1) mmol/L Chloride (98-107) mmol/L Carbon Dioxide (22-32) mmol/L BUN (9-20) mg/dL Creatinine (0.66-1.25) mg/dL Estimated GFR (>60) mL/min BUN/Creatinine Ratio (6-22) Glucose (70-100) mg/dL Calcium (8.4-10.2) mg/dL Total Bilirubin (0.2-1.3) mg/dL AST (17-59) IU/L ALT (<50) IU/L Alkaline Phosphatase (38-126) U/L Total Creatine Kinase 62 (55-170) U/L CK-MB (CK-2) TNP CK-MB (CK-2) Rel Index TNP Troponin I 0.091 H (0.01-0.034) ng/mL NT-Pro-B Natriuret Pep 1920 H (<125) pg/mL Total Protein (6.3-8.2) g/dL Albumin (3.5-5.0) g/dL Globulin (1.7-4.1) g/dL Albumin/Globulin Ratio (1.0-2.8) SARS-CoV-2 (PCR) Negative (Negative) MDM Narrative Medical decision making narrative: CC: 57-year-old male with nausea, vomiting and rapid heart rate Complicating co-morbidities: Recent Cardiothoracic surgery Data collected from: Patient Medical records reviewed: Prior notes reviewed in our EMR Differential considered, but not limited to: Surgical complication, tachyarrhythmia such as atrial flutter or atrial fibrillation, viral gastroenteritis versus other Exam documented above, pertinent findings include: Patient appears in some distress on arrival, holding an emesis bag with tachycardic but regular heart, no significant increased work of breathing, no abdominal pain. Incision is clean, dry and intact, no erythema, dehiscence or drainage Lab Test results independently reviewed as above. Pertinent findings: No significant unexpected labs that would require immediate intervention Independently reviewed EKG as above (atrial flutter, 2-1 conduction without evidence of ischemia) Imaging studies independently reviewed: No acute cardiopulmonary pathology Consultations: You would of Cardiothoracic surgery Treatments: Metoprolol, Zofran, Protonix Re-evaluations: Patient asymptomatic after cardioversion, significant nausea and vomiting likely a consequence of tachyarrhythmia Discussion: 57-year-old male about 2 weeks postop for ascending aortic aneurysm and aortic valve repair presents with relatively sudden onset nausea, vomiting, lightheadedness and racing heart. He had been doing quite well postop and was active and without issue. He is found to be in a two-to-one atrial flutter, patient had been on apixaban since his discharge, is certain is symptoms had only been present for a few hours and had reassuring echocardiogram postoperatively at the [facility]. I consulted with Cardiothoracic surgery and we sure the opinion that the patient is safe and appropriate for cardioversion. Patient and consented to the procedure, patient tolerated procedure well and was completely asymptomatic in the aftermath. Cardiothoracic surgery recommended no specific change in the follow- up plan, suggested this is not uncommon in the aftermath of this surgery, no change in medications. Disposition: see below, along with detailed discharge instructions that have been reviewed with patient as well as indications for ED re-evaluation and additional outpatient follow up Critical Care Time Critical Care Time Critical Care Time: Yes Total Critical Care Time: 35 Attestation: The high probability of a clinically significant, sudden or life threatening deterioration of the [CV] system(s) required my full and direct attention, intervention and personal management. The aggregate critical care time was [35] minutes. This time is in addition to time spent performing reported procedures but includes the following: [x] Data Review and interpretation [x] Patient assessment and monitoring of vital signs [x] Documentation [x] Medication orders and management Discharge Plan Departure Patient Disposition: Home Clinical Impression: Atrial flutter Instructions: DI for Atrial Flutter Activity Restrictions/Additional Instructions: *You have been diagnosed with [atrial flutter status post electrical cardioversion] *What to do: *Please continue to take your regular medications as directed. *Please follow up with your primary care provider in 2-3 days, call for an appointment. Let them know you were seen in the Emergency Department and that we ask that you be seen in follow up. We will electronically transmit a record of today's note if your PCP is in our system *Return to Emergency Department if you should have any new, worsening or concerning symptoms, such as [fever greater than 101 F, shaking chills, worse keith pain, persistent vomiting or other bothersome symptoms] Prescriptions: New ondansetron 4 mg tablet,disintegrating 4 mg PO TID-QID PRN (Reason: nausea and vomiting) Qty: 10 0RF No Action lisinopril 20 mg tablet 20 mg PO DAILY Qty: 90 1RF Referrals: Kyle Bejarano MD [Primary Care Provider] - Stand Alone Forms: Patient Portal/API
[2022-09-02 12:46] LABS: Add Manual Diff / Slide Review NO; Basophils Absolute Auto 100 /uL (0-100); Basophils Percent Auto 0.6 % (0-2); Eosinophils Absolute Auto 100 /uL (0-450); Eosinophils Percent Auto 0.5 % (2-4); Hematocrit 32.3 % (41-53); Hemoglobin 11.1 g/dL (13.5-17.5); Lymphocytes Absolute Auto 900 /uL (1100-4500); Lymphocytes Percent Auto 6.9 % (25-40); Mean Corpuscular HGB Conc 34.4 % (30-36); Mean Corpuscular Hemoglobin 31.3 PG (26-34); Monocytes Absolute Auto 900 /uL (0-900); Monocytes Percent Auto 6.6 % (3-14); Neutrophils Absolute Auto 11600 /uL (1500-7000); Neutrophils Percent Auto 85.4 % (50-75); Platelet Count 644 X10^3/uL (150-400); Red Blood Cell Count 3.55 X10^6/uL (4.5-5.9); Red Cell Distribution Width 13.1 % (11.6-14.8); White Blood Cell Count 13.6 X10^3/uL (4.5-11.0)
[2022-09-02] MEDS: ONDANSETRON 4 MG/2 ML INJ IV (12:46)
[2022-09-02] MEDS: METOPROLOL TARTRATE 5 MG/5 ML INJ IV (12:52)
[2022-09-02 12:54] LABS: INR 1.4 (0.9-1.3); Prothrombin Time 15.7 SECONDS (10.1-12.7)
[2022-09-02 12:58] LABS: Alanine Aminotransferase 47 IU/L (<50); Albumin 4.1 g/dL (3.5-5.0); Albumin Globulin Ratio 1.1 (1.0-2.8); Alkaline Phosphatase 83 U/L (38-126); Aspartate Aminotransferase 33 IU/L (17-59); Bilirubin Total 0.5 mg/dL (0.2-1.3); Blood Urea Nitrogen 22 mg/dL (9-20); Calcium 9.5 mg/dL (8.4-10.2); Carbon Dioxide 24 mmol/L (22-32); Chloride 98 mmol/L (98-107); Creatine Kinase 62 U/L (55-170); Estimated Glomerular Filt Rate > 60 mL/min (>60); Globulin 3.8 g/dL (1.7-4.1); Glucose 146 mg/dL (70-100); HEMOLYSIS < 15 (0-50); Potassium 4.6 mmol/L (3.4-5.1); Sodium 131 mmol/L (137-145); Total Protein 7.9 g/dL (6.3-8.2)
[2022-09-02 12:59] LABS: COVID19 -Nasal RAPID Negative (Negative)
[2022-09-02 13:10] LABS: NT-proBNP (BNP-Adult 18+) 1920 pg/mL (<125); Troponin I 0.091 ng/mL (0.01-0.034)
[2022-09-02] MEDS: propofoL 200 MG/20 ML VIAL 80 MG IV (13:19)
[2022-09-02] MEDS: PANTOPRAZOLE 40 MG VIAL IV (14:19)
== END 2022-09-02 14:51 | disposition home or self-care (01) ==
PROVIDERS: Emergency Provider Emergency Medicine; PCP Student in an Organized Health Care Education/Training Program
DX: I48.92 Unspecified atrial flutter (principal); Z20.822 Contact with and (suspected) exposure to COVID-19
CPT/HCPCS: 36415; 71045; 80053; 82550; 83880; 84484; 85025; 85610; 87635; 92960; 93005; 96374; 96375; 99152; 99284; 99291; C9803; C9113; J2405; J2704

== ENCOUNTER 2022-12-30 08:30 | Outpatient (RCR) | payer BC, SELFPAY | END 2022-12-30 14:00 | LOC: CAR 08:30 | PROVIDERS: PCP Student in an Organized Health Care Education/Training Program; Referring Provider Internal Medicine Cardiovascular Disease; Visit Provider Internal Medicine Cardiovascular Disease | DX: Z95.2 Presence of prosthetic heart valve (principal) | CPT/HCPCS: 93798 ==

== ENCOUNTER → 2023-02-24 07:56 | Outpatient (CLI) | payer BC, SELFPAY ==
--- NOTE | 2023-02-24 | DI.NM.S_ITS ---
PROCEDURE: NM EXERCISE TREADMILL NON NUC COMPARISON: None INDICATIONS: Nonrheumatic aortic (valve) stenosis FINDINGS: Rest ECG sinus rhythm, occasional PVCs. David protocol 12:00, maximum heart rate 179 bpm (112% peak predicted), maximum blood pressure 180/100, 12.8 METS, MANPREET -34%. Exercise ECG sinus tachycardia, no ST segment changes or arrhythmia. IMPRESSION: Low risk study. No evidence of exercise-induced ischemia or arrhythmia. Normal hemodynamic response. Very good exercise capacity. Dictated by: Cari Sheppard D.O. on 02/24/2023 at 16:52 Approved by: Cari Sheppard D.O. on 02/24/2023 at 16:55
== END ==
PROVIDERS: PCP Internal Medicine; Referring Provider Internal Medicine; Visit Provider Internal Medicine
DX: I35.0 Nonrheumatic aortic (valve) stenosis (principal); Z02.1 Encounter for pre-employment examination
CPT/HCPCS: 93017

== ENCOUNTER → 2023-02-24 09:08 | Outpatient (CLI) | payer BC, SELFPAY ==
--- NOTE | 2023-02-24 09:09 | DI.ECHO.S_ITS ---
[facility] +---------+ : : [address] : [address] : : : : [phone] : : : : Phone: [phone]---------+ Echocardiogram Report + + :Name: MADELEINE JONES Study Date: 02/24/2023 Height: 69.5 in: :[facility] ReadingLocation: Weight: 173 lb : : Gender: Male BSA: 2.0 m2 : :: 1965 Age: 58 yrs BP: 128/96 mmHg: :Reason For Study: FAA REQUIREMENT, AORTIC VALVE REPLACEMENT : :Ordering Physician: KARLI, : :Cameron Performed By: Tianna Dennison : :Referring: CAMERON CALVILLO : + + Interpretation Summary The left ventricle is normal in size. The ejection fraction is estimated to be 60-65%. No significant change in LVEF. The right ventricle is normal size. Visually RV function appears to be preserved. There is a bioprosthetic aortic valve. The prosthetic aortic valve is well-seated. Bioprosthetic aortic valve is a new finding. Previously bicuspid aortic valve with moderate to severe aortic stenosis. The peak aortic velocity is 1.48 m/sec. The aortic valve mean gradient is 5.0 mmHg. The IVC is of normal diameter and collapses greater than 50% with a sniff. This suggests a low right atrial pressure of 3 mm Hg. Ascending aorta 3.2 cm in diameter. Previously 4.5 cm. Aortic root 4.1 cm in diameter. Previously 4.3 cm. Procedure: A two-dimensional transthoracic echocardiogram with color flow and Doppler was performed. The study quality was technically adequate. Comparison is made with the echocardiogram of 03/19/2022. The patient was in sinus rhythm with heart rates between 78-89 bpm during the exam. Left Ventricle: Proximal septal thickening is noted. The left ventricle is normal in size. There is no echo evidence for significant left ventricular outflow tract obstruction. There is no thrombus. The ejection fraction is estimated to be 60-65%. Septal motion is consistent with conduction abnormality. Diastolic parameters suggest a relaxation abnormality of the left ventricle, consistent with probable normal filling pressures. Right Ventricle: The right ventricle is normal size. Visually RV function appears to be preserved. Atria: The left atrial size is normal. There has been no significant change since the previous study. The right atrium is normal in size. There is no Doppler evidence for an interatrial shunt. Mitral Valve: The mitral valve leaflets appear mildly thickened, but open well. There is mild mitral annular calcification. There is mild mitral regurgitation. Aortic Valve: There is a bioprosthetic aortic valve. The prosthetic aortic valve is well-seated. The peak aortic velocity is 1.48 m/sec. The aortic valve mean gradient is 5.0 mmHg. No aortic regurgitation is present. Tricuspid Valve: The tricuspid valve is normal in structure and function. There is trace tricuspid regurgitation. Pulmonary artery pressures cannot be estimated because of the lack of a measurable TR jet velocity. Pulmonic Valve: The pulmonic valve leaflets are thin and pliable; valve motion is normal. There is no pulmonic valvular regurgitation. Great Vessels: The aortic root is borderline dilated. The dimensions of the ascending aorta are normal. The IVC is of normal diameter and collapses greater than 50% with a sniff. This suggests a low right atrial pressure of 3 mm Hg. Pericardium/ Pleura There is no pericardial effusion. There is no pleural effusion. MMode/2D Measurements & Calculations LVIDd: 4.9 cm LVOT diam: 2.4 cm LVIDs: 3.0 cm Ao root diam: 4.1 cm FS: 38.0 % asc Aorta Diam: 3.2 cm IVSd: 1.1 cm Ao Arch Diam (Prox Trans): 2.8 cm LVPWd: 1.1 cm LV mast. diameter/BSA (cm/m^2): 2.5 LV sys. diameter/BSA (cm/m^2): 1.5 LA A2 area: 20.1 cm2 RA long axis: 5.0 cm LA A4 area: 17.8 cm2 RA area: 14.5 cm2 LA length (vol): 5.3 cm RA vol: 35.9 ml LA vol: 57.8 ml RA : 18.4 ml/m2 LA vol index: 29.6 ml/m2 IVC diam: 1.8 cm RVD1 (basal): 3.5 cm RVD2 (mid): 2.7 cm TAPSE: 1.1 cm Doppler Measurements & Calculations Ao V2 max: 148.4 cm/sec LVOT Max Roberto: 66.0 cm/sec Ao V2 mean: 102.9 cm/sec LV V1 max P.7 mmHg Ao max P.7 mmHg LV V1 VTI: 12.7 cm Ao mean P.0 mmHg ABISAI(I,D): 2.3 cm2 Ao V2 VTI: 25.5 cm ABISAI(V,D): 2.1 cm2 sev ratio: 0.50 ABISAI indexed to BSA (cm^2/m^2): 1.2 MV E max roberto: 59.1 cm/sec PA V2 max: 74.8 cm/sec MV A max roberto: 82.4 cm/sec PA V2 mean: 58.3 cm/sec MV E/A: 0.72 PA mean P.4 mmHg Med Peak E' Roberto: 5.5 cm/sec PA pr(Accel): 35.3 mmHg E/E' med: 10.8 Lat Peak E' Roberto: 9.3 cm/sec E/E' lat: 6.3 E/e' average: 8.6 MV dec time: 0.23 sec SV(LVOT): 59.2 ml Reading Physician:02:17 PM
== END ==
PROVIDERS: PCP Internal Medicine; Referring Provider Internal Medicine; Visit Provider Internal Medicine
DX: I35.0 Nonrheumatic aortic (valve) stenosis (principal); Z02.1 Encounter for pre-employment examination; I44.0 Atrioventricular block, first degree; Q23.1 Congenital insufficiency of aortic valve; Z95.2 Presence of prosthetic heart valve
CPT/HCPCS: 93017; 93242; 93306

== ENCOUNTER → 2023-02-24 13:47 | Outpatient (CLI) | payer BC, SELFPAY | PROVIDERS: PCP Internal Medicine; Referring Provider Student in an Organized Health Care Education/Training Program; Visit Provider Student in an Organized Health Care Education/Training Program | DX: R00.2 Palpitations (principal) | CPT/HCPCS: 93242 ==

== ENCOUNTER → 2023-03-04 07:26 | Outpatient (CLI) | payer BC, SELFPAY ==
[2023-03-04 09:04] LABS: Alanine Aminotransferase 25 IU/L (<50); Albumin 4.3 g/dL (3.5-5.0); Albumin Globulin Ratio 1.4 (1.0-2.8); Alkaline Phosphatase 44 U/L (38-126); Aspartate Aminotransferase 32 IU/L (17-59); BUN Creatinine Ratio 17.4 (6-22); Bilirubin Total 0.9 mg/dL (0.2-1.3); Blood Urea Nitrogen 21 mg/dL (9-20); Calcium 9.9 mg/dL (8.4-10.2); Carbon Dioxide 25 mmol/L (22-32); Chloride 103 mmol/L (98-107); Cholesterol 200 mg/dL (140-199); Estimated Glomerular Filt Rate > 60 mL/min (>60); Glucose 92 mg/dL (80-110); HDL Cholesterol 71 mg/dL (40-60); HEMOLYSIS < 15 (0-50); LDL Cholesterol Calculated 115 mg/dL (<100); Potassium 4.9 mmol/L (3.4-5.1); Sodium 137 mmol/L (137-145); Total Protein 7.3 g/dL (6.3-8.2); Triglycerides 72 mg/dL (35-150)
[2023-03-04 10:16] LABS: Add Manual Diff / Slide Review NO; Basophils Absolute Auto 100 /uL (0-100); Basophils Percent Auto 1.2 % (0-2); Eosinophils Absolute Auto 100 /uL (0-450); Hemoglobin 14.3 g/dL (13.5-17.5); Lymphocytes Absolute Auto 900 /uL (1100-4500); Lymphocytes Percent Auto 13.9 % (25-40); Mean Corpuscular Volume 91.2 fL (80-100); Monocytes Absolute Auto 700 /uL (0-900); Monocytes Percent Auto 10.5 % (3-14); Neutrophils Absolute Auto 4800 /uL (1500-7000); Neutrophils Percent Auto 72.4 % (50-75); Platelet Count 260 X10^3/uL (150-400); Red Blood Cell Count 4.61 X10^6/uL (4.5-5.9); Red Cell Distribution Width 15.2 % (11.6-14.8); White Blood Cell Count 6.6 X10^3/uL (4.5-11.0)
[2023-03-09 16:15] LABS: Prostate Specific Antigen 1.03 ng/mL (0.10-4.00)
== END ==
PROVIDERS: Family Medicine; PCP Internal Medicine; Referring Provider Nurse Practitioner Acute Care; Visit Provider Nurse Practitioner Acute Care
DX: Z95.2 Presence of prosthetic heart valve (principal); I10 Essential (primary) hypertension; Z12.5 Encounter for screening for malignant neoplasm of prostate
CPT/HCPCS: 36415; 80053; 80061; 84153; 85025

== ENCOUNTER → 2023-03-17 10:05 | Outpatient (CLI) | payer BC, SELFPAY ==
[2023-03-17 12:14] LABS: Magnesium 2.1 mg/dL (1.6-2.3)
[2023-03-17 13:01] LABS: Thyroid Stimulating Hormone 2.16 uIU/mL (0.47-4.68)
== END ==
PROVIDERS: PCP Family Medicine; Referring Provider Internal Medicine Cardiovascular Disease; Visit Provider Internal Medicine Cardiovascular Disease
DX: Z86.79 Personal history of other diseases of the circulatory system (principal)
CPT/HCPCS: 36415; 83735; 84443

== ENCOUNTER → 2024-01-06 07:06 | Outpatient (CLI) | payer BC, OTHER, SELFPAY ==
[2024-01-06 07:45] LABS: Add Manual Diff / Slide Review NO; Basophils Absolute Auto 100 /uL (0-100); Basophils Percent Auto 1.2 % (0-2); Eosinophils Absolute Auto 300 /uL (0-450); Hematocrit 39.3 % (41-53); Hemoglobin 13.5 g/dL (13.5-17.5); Lymphocytes Absolute Auto 1300 /uL (1100-4500); Lymphocytes Percent Auto 26.2 % (25-40); Mean Corpuscular HGB Conc 34.2 % (30-36); Mean Corpuscular Hemoglobin 32.2 PG (26-34); Mean Corpuscular Volume 94.1 fL (80-100); Monocytes Absolute Auto 500 /uL (0-900); Monocytes Percent Auto 10.9 % (3-14); Neutrophils Absolute Auto 2900 /uL (1500-7000); Neutrophils Percent Auto 56.7 % (50-75); Platelet Count 228 X10^3/uL (150-400); Red Blood Cell Count 4.18 X10^6/uL (4.5-5.9); Red Cell Distribution Width 13.5 % (11.6-14.8)
[2024-01-06 08:12] LABS: Alanine Aminotransferase 22 IU/L (<50); Albumin Globulin Ratio 1.7 (1.0-2.8); Alkaline Phosphatase 45 U/L (38-126); Aspartate Aminotransferase 31 IU/L (17-59); BUN Creatinine Ratio 17.7 (6-22); Bilirubin Total 0.6 mg/dL (0.2-1.3); Blood Urea Nitrogen 23 mg/dL (9-20); Calcium 9.3 mg/dL (8.4-10.2); Carbon Dioxide 25 mmol/L (22-32); Chloride 107 mmol/L (98-107); Cholesterol 174 mg/dL (140-199); Estimated Glomerular Filt Rate > 60 mL/min (>60); Globulin 2.4 g/dL (1.7-4.1); Glucose 79 mg/dL (80-110); HDL Cholesterol 68 mg/dL (40-60); HEMOLYSIS < 15 (0-50); LDL Cholesterol Calculated 98 mg/dL (<100); Potassium 4.6 mmol/L (3.4-5.1); Sodium 138 mmol/L (137-145); Total Protein 6.4 g/dL (6.3-8.2); Triglycerides 42 mg/dL (35-150)
== END ==
PROVIDERS: PCP Family Medicine; Referring Provider Family Medicine; Visit Provider Family Medicine
DX: D64.9 Anemia, unspecified (principal); I10 Essential (primary) hypertension; Z95.2 Presence of prosthetic heart valve; N40.0 Benign prostatic hyperplasia without lower urinary tract symptoms
CPT/HCPCS: 36415; 80053; 80061; 85025

== ENCOUNTER → 2024-06-20 12:37 | Outpatient (CLI) | payer BC, OTHER, SELFPAY ==
--- NOTE | 2024-06-20 12:38 | DI.ECHO.S_ITS ---
[place] [facility]---------+ [facility] : : [address] : : [address] : : [id number] : : Phone: [phone] Echocardiogram Report + + :Name: MADELEINE JONES Study Date: 06/20/2024 Height: 69.5 in: :[facility] ReadingLocation: Weight: 178 lb : : Gender: Male BSA: 2.0 m2 : :: 1965 Age: 59 yrs BP: 121/88 mmHg: :Reason For Study: FOLLOW UP AORTIC VALVE : :Ordering Physician: VICKIE, : :ALYSON Performed By: Tianna Dennison : :Referring: AYLSON JOHNSTON : + + Interpretation Summary The left ventricle is normal in size. The left ventricular ejection fraction is normal. The ejection fraction is estimated to be 60-65%. There has been no significant change in LVEF since the previous exam. The right ventricle is mildly dilated. The right ventricular systolic function is normal. There is mild mitral regurgitation. Previously mild to moderate MR. There is a bioprosthetic aortic valve. The prosthetic aortic valve is well-seated. The peak aortic velocity is 1.78 m/sec. The aortic valve mean gradient is 7 mmHg. The peak aortic velocity on the previous exam was 1.3 m/sec. No aortic stenosis. Procedure: A two-dimensional transthoracic echocardiogram with color flow and Doppler was performed. The study quality was technically adequate. Comparison is made with the echocardiogram of 07/16/2023. The patient was in sinus rhythm with heart rates between 62-74 bpm during the exam. Left Ventricle: Proximal septal thickening is noted. The left ventricle is normal in size. There is no echo evidence for significant left ventricular outflow tract obstruction. There is no thrombus. The ejection fraction is estimated to be 60-65%. The left ventricular ejection fraction is normal. There has been no significant change since the previous exam. There are no focal wall motion abnormalities. MV E/A: 1.3 Med Peak E' Roberto: 6.9 cm/sec E/E' med: 12.4. Right Ventricle: The right ventricle is mildly dilated. The right ventricular systolic function is normal. Atria: The left atrial size is normal. There has been no significant change since the previous study. Right atrial size is normal. There is no Doppler evidence for an interatrial shunt. Mitral Valve: The mitral valve leaflets appear mildly thickened, but open well. There is mild mitral annular calcification. There is mild mitral regurgitation. Compared to the prior echo study, there has been an increase in the severity of mitral regurgitation. Aortic Valve: There is a bioprosthetic aortic valve. The prosthetic aortic valve is well-seated. The peak aortic velocity is 1.78 m/sec. The aortic valve mean gradient is 7 mmHg. The peak aortic velocity on the previous exam was 1.3 m/sec. There is no hemodynamically significant valvular aortic stenosis. No aortic regurgitation is present. Tricuspid Valve: The tricuspid valve is normal. There is trace tricuspid regurgitation. Pulmonary artery pressures cannot be estimated because of the lack of a measurable TR jet velocity. Pulmonic Valve: The pulmonic valve leaflets are thin and pliable; valve motion is normal. There is trace pulmonic regurgitation. Great Vessels: The aortic root is normal size. The dimensions of the ascending aorta are normal. The IVC is of normal diameter and collapses greater than 50% with a sniff. This suggests a low right atrial pressure of 3 mm Hg. Pericardium/ Pleura There is no pericardial effusion. There is no pleural effusion. MMode/2D Measurements & Calculations LVIDd: 4.8 cm LVOT diam: 2.3 cm LVIDs: 2.8 cm asc Aorta Diam: 3.2 cm FS: 42.5 % Ao Arch Diam (Prox Trans): 3.0 cm IVSd: 1.0 cm LVPWd: 1.00 cm LV mast. diameter/BSA (cm/m^2): 2.4 LV sys. diameter/BSA (cm/m^2): 1.4 LA A2 area: 19.7 cm2 RA long axis: 5.5 cm LA A4 area: 19.3 cm2 RA area: 19.9 cm2 LA length (vol): 5.1 cm RA vol: 61.5 ml LA vol: 63.4 ml RA : 31.1 ml/m2 LA vol index: 32.1 ml/m2 IVC diam: 2.0 cm RVD1 (basal): 4.3 cm RVD2 (mid): 3.9 cm TAPSE: 2.0 cm Doppler Measurements & Calculations Ao V2 max: 177.6 cm/sec LVOT Max Roberto: 88.7 cm/sec Ao V2 mean: 123.3 cm/sec LV V1 max P.1 mmHg Ao max P.6 mmHg LV V1 VTI: 18.2 cm Ao mean P.8 mmHg ABISAI(I,D): 2.3 cm2 Ao V2 VTI: 32.9 cm ABISAI(V,D): 2.0 cm2 sev ratio: 0.55 ABISAI indexed to BSA (cm^2/m^2): 1.1 MV E max roberto: 85.6 cm/sec PA V2 max: 92.4 cm/sec MV A max roberto: 65.0 cm/sec PA V2 mean: 65.4 cm/sec MV E/A: 1.3 PA mean P.9 mmHg Med Peak E' Roberto: 6.9 cm/sec PA pr(Accel): 20.8 mmHg E/E' med: 12.4 Lat Peak E' Roberto: 7.7 cm/sec E/E' lat: 11.2 E/e' average: 11.8 MV dec time: 0.19 sec SV(LVOT): 74.4 ml Reading Physician:09:42 AM
== END ==
LOC: ECHO 12:38
PROVIDERS: PCP Family Medicine; Referring Provider Family Medicine; Visit Provider Family Medicine
DX: Z95.2 Presence of prosthetic heart valve (principal); I51.7 Cardiomegaly; I34.0 Nonrheumatic mitral (valve) insufficiency
CPT/HCPCS: 93306

== ENCOUNTER 2024-07-01 18:14 | Emergency (ER) | payer BC, OTHER, SELFPAY ==
[2024-07-01 18:50] VITALS: BP 167/85; PULSE 63; RESP 14; TEMP 36.3; O2SAT 98; BMI 25.9
--- NOTE | 2024-07-01 19:15 | PC.NURSE ---
PT denies any pain or urinary symptoms. He requests a drug screen performed.
[2024-07-01 19:21] LABS: Ur Creatinine Normal (Normal); Ur Specific Gravity Normal (Normal); Urine Amphetamines Negative (Negative); Urine Barbiturates Negative (Negative); Urine Benzodiazepines Negative (Negative); Urine Cocaine Negative (Negative); Urine MDMA Negative (Negative); Urine Methadone Negative (Negative); Urine Methamphetamines Negative (Negative); Urine Opiates Negative (Negative); Urine Oxycodone Negative (Negative); Urine Phencyclidine Negative (Negative); Urine THC Negative (Negative); Urine Tricyclic Antidepressant Negative (Negative); Urine pH Normal (Normal)
--- NOTE | 2024-07-01 21:09 | PC.NURSE ---
No answer when patient called to be placed in exam room at this time.
== END 2024-07-01 21:14 | disposition left against medical advice (07) ==
PROVIDERS: Emergency Provider Student in an Organized Health Care Education/Training Program; PCP Family Medicine
DX: R82.90 Unspecified abnormal findings in urine (principal)
CPT/HCPCS: 80305; 99281

== ENCOUNTER 2025-03-01 17:25 | Emergency (ER) | payer BC, OTHER, SELFPAY ==
[2025-03-01] VITALS (7 sets, daily range): BP systolic 102–117; BP diastolic 63–82; PULSE 73–93; RESP 14; TEMP 36.2; O2SAT 87–98; BMI 25.5
--- NOTE | 2025-03-01 17:42 | EKG_ITS ---
[address] [address] Test Date: 2025-03-01 Pat Name: Andrea Nunez Department: Room: Gender: Male [employer] Database Specialist: BARRERA : 1965 Requested By: Order Number: [id number] Reading MD: Mode Lockwood Measurements Intervals [place] Rate: 82 P: 54 WV: 194 QRS: -59 QRSD: 98 T: 29 QT: 374 QTc: 436 Interpretive Statements Poor data quality, interpretation may be adversely affected Normal sinus rhythm Left axis deviation Anteroseptal infarct , age undetermined Electronically Signed On 03-02-2025 8:19:46 PDT by Mode Lockwood
[2025-03-01 18:31] LABS: Add Manual Diff / Slide Review NO; Hematocrit 42.0 % (41-53); Hemoglobin 14.6 g/dL (13.5-17.5); Lymphocytes Absolute Auto 400 /uL (1100-4500); Mean Corpuscular HGB Conc 34.8 % (30-36); Mean Corpuscular Hemoglobin 32.0 PG (26-34); Mean Corpuscular Volume 91.8 fL (80-100); Platelet Count 177 X10^3/uL (150-400)
[2025-03-01 18:38] LABS: Alanine Aminotransferase 20 IU/L (<50); Albumin 4.3 g/dL (3.5-5.0); Albumin Globulin Ratio 1.4 (1.0-2.8); Alkaline Phosphatase 45 U/L (38-126); Blood Urea Nitrogen 17 mg/dL (9-20); Calcium 9.3 mg/dL (8.4-10.2); Carbon Dioxide 17 mmol/L (22-32); Chloride 101 mmol/L (98-107); Estimated Glomerular Filt Rate > 60 mL/min (>60); Globulin 3.1 g/dL (1.7-4.1); Glucose 119 mg/dL (70-99); HEMOLYSIS 29 (0-50); Lipase 51 U/L (23-300); Potassium 4.1 mmol/L (3.4-5.1); Sodium 131 mmol/L (137-145); Total Protein 7.4 g/dL (6.3-8.2)
--- NOTE | 2025-03-01 18:50 | PC.NURSE ---
pt reporting having diarrhea since wednesday. denies nausea. pt reporting he has just been feeling extra tired. recently returned from [place] this week. denies blood in stool. endorsing chills currently afebrile
--- NOTE | 2025-03-01 19:01 | ED_ITS ---
HPI - Nausea/Vomiting/Diarrhea General Chief complaint: Nausea/Vomiting/Diarrhea Stated complaint: [facility] ref, viral gastritis? Low heart rate Time Seen by Provider: 03/01/25 18:01 Source: patient Mode of arrival: Ambulatory History of Present Illness HPI Narrative: 60-year-old male recently returned to trip from [place], for the last few days has had loose stools, no black or red or mucoid component, no recent antibiotic exposure. has eaten similar foods and travel with him to similar places, without similar GI symptoms. No history of Crohn's disease, inflammatory bowel disease, irritable bowel. He has had smoothie these today. Last urinating this morning. Denies nausea. Has crampy abdominal pain. Related Data Home Medications ?Medication ?Instructions ?Recorded ?Confirmed betamethasone dipropionate 0.05 % 1 applic topical BID PRN 09/14/22 06/20/24 topical cream aspirin 81 mg tablet,delayed 81 mg PO DAILY 03/01/25 1 release (Adult Low Dose Aspirin) Previous Rx's ?Medication ?Instructions ?Recorded metoprolol succinate 25 mg 25 mg PO DAILY #90 tabs tablet,extended release 24 hr tamsulosin 0.4 mg capsule 0.4 mg PO BEDTIME #90 caps 0 06/20/24 lisinopril 20 mg tablet 20 mg PO DAILY #90 tabs 10/22 08/15 azithromycin 500 mg tablet 500 mg PO DAILY 2 days #2 t abs 03/01/25 Allergies Allergy/AdvReac Type Severity Reaction Status Date / Time No Known Drug Allergies Allergy Verified 03/01/25 17:34 Patient History Medical History (Updated 03/01/25 @ 22:00 by Jack Estrada MD) Left shoulder pain Encounter for nutritional assessment Preventative health care Postoperative keloid scar BPH (benign prostatic hyperplasia) Family history of pancreatic cancer Family history of colon cancer Anemia GERD (gastroesophageal reflux disease) Moderate mixed hyperlipidemia not requiring statin therapy Wound of left lower extremity (01/20/15) Surgical History S/P aortic valve replacement Status post excision of lipoma Family History Father Cancer Mother History of heart disease Brother Cancer Social History household members: spouse alcohol intake: current alcohol intake frequency: 0-2 drinks per day Alcohol type: beer Exam Narrative Exam Narrative: GENERAL: Well-developed patient, in mild distress. HEAD: Atraumatic. Normocephalic. EYES: Pupils equal round and reactive. Extraocular motions intact. No scleral icterus. No injection or drainage. ENT: Nose without bleeding, purulent drainage. Throat without erythema, tonsillar hypertrophy or exudate. Airway patent. NECK: Trachea midline. Non tender CARDIOVASCULAR: Regular rate and rhythm without murmurs, gallops, or rubs. RESPIRATORY: Clear to auscultation. Breath sounds equal bilaterally. No wheezes, rales, or rhonchi. GASTROINTESTINAL: Abdomen soft, non-tender, nondistended. Slight hyperactive bowel tones without rushes or tinkles. No significant areas of tenderness. EXTREMITIES: No edema or joint tenderness. BACK: Nontender without deformity or crepitance. No flank tenderness. NEURO: AOx3. Motor functions grossly nonfocal. SKIN: No rash or erythema of visible areas Initial Vital Signs Initial Vital Signs: Vital Signs Temperature 97.1 F L 03/01/25 17:30 Pulse Rate 93 H 03/01/25 17:30 Respiratory Rate 14 03/01/25 17:30 Blood Pressure 102/63 03/01/25 17:30 Pulse Oximetry 98 03/01/25 17:30 Oxygen Delivery Method Room Air 03/01/25 17:30 Course Orders Ordered: ED Orders 03/01/25 17:42 EKG-12 Lead Stat 03/01/25 18:20 Complete Blood Count AUTO DIFF Stat Comprehensive Metabolic Panel Stat Lipase Stat 03/01/25 18:26 EKG-12 Lead Stat 03/01/25 19:55 GI Panel (Film Array) Stat Discontinued Medications Azithromycin (Azithromycin 250 Mg Tablet) 500 mg PO NOW ONE Stop: 03/01/25 22:00 Last Admin: 03/01/25 22:06 Dose: 500 mg Documented By: ANIA Dicyclomine HCl (Dicyclomine 10 Mg Capsule) 20 mg PO NOW ONE Stop: 03/01/25 19:40 Last Admin: 03/01/25 19:50 Dose: 20 mg Documented By: NOEMÍ Sodium Chloride (Normal Saline 0.9%) 1,000 mls @ 1,000 mls/hr IV BOLUS ONE Stop: 03/01/25 19:59 Last Infusion: 03/01/25 20:45 Dose: Infused Documented By: Admin: 03/01/25 19:40 Dose: 1,000 mls/hr Documented By: NOEMÍ Sodium Chloride (Normal Saline 0.9%) 1,000 mls @ 1,000 mls/hr IV BOLUS ONE Stop: 03/01/25 20:38 Last Infusion: 03/01/25 21:30 Dose: Infused Documented By: Admin: 03/01/25 20:47 Dose: 1,000 mls/hr Documented By: ANIA Ondansetron HCl (Ondansetron 4 Mg/2 Ml Inj) 4 mg IV NOW PRN PRN Reason: Nausea And Vomiting Ondansetron HCl (Ondansetron 4 Mg Odt) 4 mg PO NOW PRN PRN Reason: Nausea And Vomiting Vital Signs Vital signs: Vital Signs - 8 hr 03/01/25 19:00 03/01/25 19:00 03/01/25 19:30 Pulse Rate 85 Blood Pressure 103/72 111/71 Pulse Oximetry 96 03/01/25 19:30 03/01/25 20:00 03/01/25 20:00 Pulse Rate 73 76 Blood Pressure 115/82 Pulse Oximetry 95 91 03/01/25 20:30 03/01/25 20:30 03/01/25 20:49 Pulse Rate 79 76 Blood Pressure 107/65 Pulse Oximetry 94 87 L 03/01/25 20:49 03/01/25 21:00 03/01/25 21:00 Pulse Rate 75 Blood Pressure 103/76 117/71 Pulse Oximetry 94 MDM - Nausea/Vomiting/Diarrhea Lab Data Attestation: I reviewed the patient's lab results. Lab results narrative: White blood cell count 7800, hemoglobin 14.6, platelets adequate. Glucose 119. BUN 17 with creatinine 1.28. Serum CO2 17 decreased. Sodium 131 mildly decreased. Potassium level normal. Liver functions and lipase normal. 03/01/25 18:20 03/01/25 18:20 Labs: Lab Results 03/01/25 03/01/25 Range/Units 18:20 19:55 WBC 7.8 (4.5-11.0) X10^3/uL RBC 4.57 (4.5-5.9) X10^6/uL Hgb 14.6 (13.5-17.5) g/dL Hct 42.0 (41-53) % MCV 91.8 (80-100) fL MCH 32.0 (26-34) PG MCHC 34.8 (30-36) % RDW 13.2 (11.6-14.8) % Plt Count 177 (150-400) X10^3/uL Neut % (Auto) 84.8 H (50-75) % Lymph % (Auto) 5.1 L (25-40) % [place] % (Auto) 9.7 (3-14) % Eos % (Auto) 0.0 L (2-4) % Baso % (Auto) 0.4 (0-2) % Neut # (Auto) 6600 (1809-0109) /uL Lymph # (Auto) 400 L (2397-1389) /uL [place] # (Auto) 800 (0-900) /uL Eos # (Auto) 0 (0-450) /uL Baso # (Auto) 0 (0-100) /uL Sodium 131 L (137-145) mmol/L Potassium 4.1 (3.4-5.1) mmol/L Chloride 101 (98-107) mmol/L Carbon Dioxide 17 L (22-32) mmol/L BUN 17 (9-20) mg/dL Creatinine 1.28 H (0.66-1.25) mg/dL Estimated GFR > 60 (>60) mL/min BUN/Creatinine Ratio 13.3 (6-22) Glucose 119 H (70-99) mg/dL Calcium 9.3 (8.4-10.2) mg/dL Total Bilirubin 0.9 (0.2-1.3) mg/dL AST 30 (17-59) IU/L ALT 20 (<50) IU/L Alkaline Phosphatase 45 (38-126) U/L Total Protein 7.4 (6.3-8.2) g/dL Albumin 4.3 (3.5-5.0) g/dL Globulin 3.1 (1.7-4.1) g/dL Albumin/Globulin Ratio 1.4 (1.0-2.8) Lipase 51 (23-300) U/L Stl C. cayetanensis PCR Not detected (Not Detect) Stool Rotavirus (PCR) Not detected (Not Detect) Stool Adenovirus (PCR) Not detected (Not Detect) Stool Astrovirus (PCR) Not detected (Not Detect) Stool Cryptosporidium PCR Not detected (Not Detect) Stl E.coli Shiga Tox PCR Not detected (Not Detect) St Sh/Enteroin Ecoli PCR Not detected (Not Detect) Stl Enterotoxigenic E PCR Not detected (Not Detect) Stool EPEC (PCR) Not detected (Not Detect) Stl E. histolytica PCR Not detected (Not Detect) Stool Giardia Lamblia PCR Not detected (Not Detect) Stool Sapovirus (PCR) Not detected (Not Detect) Stl P. shigelloides PCR Not detected (Not Detect) St Y.enterocolitica PCR Not detected (Not Detect) Stool Vibrio (PCR) Not detected (Not Detect) Stl Vibrio cholerae PCR Not detected (Not Detect) Stl Enteroaggr Ecoli PCR Not detected (Not Detect) Stl Norovirus GI/GII PCR Not detected (Not Detect) Campylobacter (PCR) Detected (Not Detect) C. difficile Tox (PCR) Not detected (Not Detect) Salmonella (PCR) Not detected (Not Detect) ECG Data Attestation: I personally reviewed and interpreted this ECG as follows: Interpretation: 1852, normal sinus rhythm with rate of 82, no obvious ST segment elevation or depression changes. ME 194, QRS 98, QTC 436. [facility] Narrative Medical decision making narrative: 60-year-old male with crampy abdominal pain, diarrhea, after return from your parents afebrile, sirs screen negative. No significant tenderness on exam. Vitals normal. Stool specimen requested, he had just had a loose stool in the waiting room but was not collected. Oral Bentyl. IV fluid bolus. EKG sinus rhythm without obvious ischemic changes. Lab data: White blood cell count 7800, hemoglobin 14.6, platelets adequate. Glucose 119. BUN 17 with creatinine 1.28. Serum CO2 17 decreased. Sodium 131 mildly decreased. Potassium level normal. Liver functions and lipase normal. Stool specimen eventually produced, sent to lab, was positive for Campylobacter, otherwise negative. Patient without immuno compromise, benign exam, no bloody stools, but is quite symptomatic with persistence of diarrheal symptoms, offered antibacterial treatments. We discussed regimen of single high-dose azithromycin 1 g, versus split dose 500 mg daily for 3 day course. He would like the ladder course when we discussed possible side effects of nausea with higher dose azithromycin. First dose of azithromycin 500 mg given now, prescription sent for 500 mg daily for 2 days more course. Encouraged to drink plenty of electrolyte containing [id number] solutions. Tylenol as needed for pain control. Home with family. Return precautions discussed. Discharge Plan Departure Patient Disposition: Home Clinical Impression: Campylobacter enteritis Activity Restrictions/Additional Instructions: Recent travel to [place], recent days diarrhea and crampy abdominal discomfort. No significant tenderness on examination, hyperactive bowel tones consistent with suspected enteritis. Stool specimen was obtained while here in the emergency department, did show Campylobacter bacteria presence. IV fluids given. You were quite symptomatic, have no immunosuppression, no fever, no bloody stools, but since your fairly symptomatic with this we did offer treatment, though many of these infections or self-limited. Use of antibiotic may shorten the illness. We discussed azithromycin dosing, higher dose single dose causes more likely nausea and vomiting then spread out doses. Azithromycin lower dose 500 mg tablet given now, take 500 mg daily for 2 more days for treatment regimen. Additional azithromycin doses sent to your pharmacy. Drink plenty of fluids such as Pedialyte Gatorade, to help stay hydrated. Recheck with your regular doctor if not improving in the next couple of days. Return to this/nearest emergency department for any change worsening symptoms or any concerns prior. Prescriptions: New azithromycin 500 mg tablet 500 mg PO DAILY 2 Days Qty: 2 0RF Rx Instructions: start on day 2 of therapy No Action aspirin [Adult Low Dose Aspirin] 81 mg tablet,delayed release (DR/EC) 81 mg PO DAILY lisinopril 20 mg tablet 20 mg PO DAILY Qty: 90 0RF tamsulosin 0.4 mg capsule 0.4 mg PO BEDTIME Qty: 90 3RF metoprolol succinate 25 mg tablet extended release 24 hr 25 mg PO DAILY Qty: 90 3RF betamethasone dipropionate 0.05 % cream 1 applic topical BID PRN Referrals: Collin Disla DO [Primary Care Provider, Family Practice] Stand Alone Forms: Patient Portal/API
[2025-03-01] MEDS: SODIUM CHLORIDE 0.9% 1,000 ML 1000 ML IV ×2 (19:40→20:47)
[2025-03-01] MEDS: DICYCLOMINE 10 MG CAPSULE 20 MG PO (19:50)
[2025-03-01 21:39] LABS: Clostridium difficile toxin AB Not Detected (Not Detect); Enteroaggregative E.coli Not Detected (Not Detect); Enteropathogenic E.coli Not Detected (Not Detect); Enterotoxigenic E.coli It/st Not Detected (Not Detect); Plesiomonsa shigelloides Not Detected (Not Detect); Shiga-like toxin-prod E.coli Not Detected (Not Detect)
[2025-03-01] MEDS: AZITHROMYCIN 250 MG TABLET 500 MG PO (22:06)
== END 2025-03-01 22:10 | disposition home or self-care (01) ==
PROVIDERS: Emergency Provider Emergency Medicine; PCP Family Medicine
DX: A04.5 Campylobacter enteritis (principal)
CPT/HCPCS: 36415; 80053; 83690; 85025; 87507; 93005; 96360; 96361; 99284; J7030

== ENCOUNTER → 2025-04-02 11:31 | Outpatient (CLI) | payer BC, OTHER, SELFPAY ==
[2025-04-02 12:13] LABS: Blood Urea Nitrogen 22 mg/dL (9-20); Calcium 10.0 mg/dL (8.4-10.2); Carbon Dioxide 23 mmol/L (22-32); Chloride 104 mmol/L (98-107); Estimated Glomerular Filt Rate 59 mL/min (>60); Glucose 103 mg/dL (70-99); HEMOLYSIS < 15 (0-50); Magnesium 2.0 mg/dL (1.6-2.3); Potassium 4.7 mmol/L (3.4-5.1); Sodium 138 mmol/L (137-145)
[2025-04-02 12:42] LABS: Thyroid Stimulating Hormone 1.41 uIU/mL (0.47-4.68)
== END ==
PROVIDERS: PCP Family Medicine; Referring Provider Internal Medicine Cardiovascular Disease; Visit Provider Internal Medicine Cardiovascular Disease
DX: I47.29 Other ventricular tachycardia (principal); L08.9 Local infection of the skin and subcutaneous tissue, unspecified
CPT/HCPCS: 36415; 80048; 83735; 84443; 87070; 87075; 87205